=== PATIENT | male | born 1985 ===

== ENCOUNTER 2023-12-17 12:51 | Outpatient (AMB) | payer OTHER, SELFPAY ==
--- NOTE | 2023-12-17 13:02 | MHC.OFFWIV ---
Intake Vital Signs 12/17/23 13:03 Height 5 ft 1 in Weight 219 lb BMI 41.4 BP 130/90 H Blood Pressure Location Lt brachial Position Sitting Pulse 71 Pulse Source Pulse Oximeter Pulse Oximetry (%) 96 Oxygen Delivery Method Room Air Intake Visit Reasons: [employer]CRE[employer]-lower back pain-work injury Intake Note: Patient here for lower back pain that moves around, pt states it started about 4 days ago while at work. Patient Tobacco Use Status: Never used Tobacco Allergies No Known Allergies Allergy (Verified 12/17/23 13:04) Do you need a note to return to daycare/school/sports/work: Yes HPI HPI Comments History of Present Illness Details This is a 38-year-old male who presented to the walk-in clinic complaining of mid to low back pain for the past several days. Patient denies any known specific trauma or injury but states he does a lot of heavy lifting at work. He states that the back pain is worse in the morning when he wakes up but seems to decrease a bit until he starts working again. He denies any numbness/weakness/paresthesias of his lower extremities or any saddle anesthesias. He denies any urinary/bowel retention/incontinence. He denies any fevers/chills. PFSH Social History Patient Tobacco Use Status: Never used Tobacco Review of Systems Const All systems reviewed & are unremarkable except as noted in HPI and below Reports no additional complaints Eyes Reports no additional complaints ENT Reports no additional complaints Card Reports no additional complaints Resp Reports no additional complaints GI Reports no additional complaints Reports no additional complaints Musc Reports no additional complaints Skin/Breast Reports system reviewed and no additional complaints, except as documented Neuro Reports no additional complaints Psych Reports no additional complaints Endo Reports no additional complaints Cameron/Lymph Reports no additional complaints Aller/Immun Reports no additional complaints Physical Exam Vital Signs: Last Vital Signs Pulse 71 12/17/23 13:03 BP 130/90 H 12/17/23 13:03 Pulse Ox 96 12/17/23 13:03 Oxygen Delivery Method Room Air 12/17/23 13:03 BMI result Body Mass Index 41.4 Const Other: Vital signs reviewed. Constitutional: Non-toxic appearing. No acute distress. Well-developed and well-nourished. HEENT: Normocephalic and atraumatic. Skin: Warm and dry. No rashes or lesions noted. Neck: Full and painless range of motion. No cervical lymphadenopathy. Cardio: Regular rate and rhythm. No lower extremity edema. No JVD. Pulmonary: No respiratory distress. No accessory muscle usage. Gastrointestinal: Soft, nontender, and nondistended in all 4 quadrants. Normoactive bowel sounds in all 4 quadrants. Genitourinary: No CVA tenderness. Musculoskeletal: There is tenderness to palpation and tightness of the lumbar paraspinal muscles bilaterally (left greater than right). There is no midline or spinous process tenderness to palpation. He has a negative straight leg raise test bilaterally. Neuro: Alert and oriented x4. Cranial nerves 2-12 grossly intact. No focal deficits appreciated. Psych: Normal mood and affect. Assessment & Plan Assessment & Plan (1) Strain of lumbar paraspinal muscle: Code(s): S39.012A - Strain of muscle, fascia and tendon of lower back, initial encounter Qualifiers: Encounter type: initial encounter Qualified Code(s): S39.012A - Strain of muscle, fascia and tendon of lower back, initial encounter Plan: This is a 38-year-old male who presented to the walk-in clinic complaining of mid to low back pain bilaterally for the past several days. Patient states he does a lot of heavy lifting for work. He has no red flag symptoms including numbness/weakness/paresthesias, saddle anesthesias, or urinary/bowel retention/incontinence. On physical examination, he has a negative straight leg raise bilaterally but he does have mild tenderness to palpation and tightness of the paraspinal musculature bilaterally. Recommended supportive management including rest/activity modification, heat to the area, PO ibuprofen 800 mg 3 times daily, PO acetaminophen 650 mg every 6 hours as needed for breakthrough pain, and PO cyclobenzaprine 10 mg 3 times daily as needed for muscle spasms. Patient was encouraged to proceed directly to the emergency room if he were to develop any red flag symptoms as listed above. Patient verbalizes understanding and he is in agreement with the plan. Medications: New cyclobenzaprine 10 mg PO TID PRN 14 tabs 0RF muscle spasm ibuprofen Take with food. 800 mg PO TID 21 tabs 0RF Coding Level of Care Code New Pt Level 3 (80838) Diagnoses Strain of lumbar paraspinous muscle, initial encounter S39.012A Encounter type: initial encounter
[2023-12-17 13:03] VITALS: BP 130/90; PULSE 71; O2SAT 96; BMI 41.4
== END 2023-12-17 13:43 | disposition home or self-care (01) ==
PROVIDERS: Visit Provider Physician Assistant Medical
DX: S39.012A Strain of muscle, fascia and tendon of lower back, initial encounter (principal)

== ENCOUNTER → 2023-12-17 12:51 | Outpatient (BNVA) | payer OTHER, SELFPAY | PROVIDERS: Visit Provider Physician Assistant Medical | DX: S39.012A Strain of muscle, fascia and tendon of lower back, initial encounter (principal); X50.0XXA Overexertion from strenuous movement or load, initial encounter; Y93.9 Activity, unspecified; Y92.9 Unspecified place or not applicable; Y99.0 Civilian activity done for income or pay | CPT/HCPCS: 99202 ==